=== PATIENT | female | born 1975 | race Two or more races ===

== ENCOUNTER 2024-11-25 14:42 | Emergency (ER) | payer MEDICAID, SELFPAY ==
[2024-11-25 15:41] VITALS: BP 118/85; PULSE 85; RESP 18; TEMP 36.6; O2SAT 97; BMI 30.2
--- NOTE | 2024-11-25 15:41 | EDNOTE_ITS ---
<Statement entered by Cherelle Mosquera MD - 11/25/24 16:08> As co-signing physician, I was present and available for consult prn. I concur with the plan and care as documented by the midlevel provider. Upper Extremity Injury RME/HPI General Chief Complaint: Extremity Injury, Upper Stated Complaint: LEFT WRIST INJURY Time Seen by Provider: 11/25/24 15:38 Arrival date/time: 11/25/24 14:42 RME / HPI RME / HPI narrative: 49-year-old female patient came in for evaluation regarding left wrist pain, on the radial aspect, for several weeks, worse with flexion of the time. Patient was seen by PCP and was given pain medication with no relief. Patient also complained of finger triggering on the right middle finger. It comes and goes. Denies any other complaints. Related Data Previous Rx's ?Medication ?Instructions ?Recorded amoxicillin 500 mg capsule 500 mg PO TID #21 caps 07/16 12/31 cyclobenzaprine 10 mg tablet 10 mg PO TID PRN pain #14 tabs 07/29/18 ibuprofen 800 mg tablet 800 mg PO QID PRN pain #20 t abs 07/29/18 acetaminophen 650 mg 650 mg PO Q8H PRN fever or p ain 07/16/22 tablet,extended release #30 tabs ibuprofen 600 mg tablet 600 mg PO Q8H PRN fever or p ain 07/16/22 #30 tabs ondansetron 4 mg disintegrating 8 mg (2 x 4 mg) PO Q8H PRN nausea 07/16/22 tablet and vomiting #20 tabs ibuprofen 800 mg tablet 800 mg PO Q8H PRN pain #30 t abs 11/25/24 Allergies Allergy/AdvReac Type Severity Reaction Status Date / Time hydrocodone Allergy Unknown Verified 11/25/24 14:44 Review of Systems Review of Systems Narrative Review of Systems: Review of system reviewed and within normal limits except mentioned in HPI ED Exam Narrative Physical exam: VITAL SIGNS: Reviewed. GENERAL APPEARANCE: Alert and interactive, follows commands, no acute distress, HEAD AND FACE: Non-traumatic. ENT: PERRL, pink conjunctivitis, eyelid no trauma, Mucous membrane moist. NECK: Supple, nontender, no nuchal rigidity. CHEST: No tenderness, no crepitus, no paradoxical movement, no retractions. LUNGS: Clear, well ventilated, symmetric, no rales, no wheezing, no ronchi, no stridor, good breath sounds bilaterally. HEART: Regular rate, regular rhythm, no murmur, no gallops. ABDOMEN: Soft, positive bowel sounds, nondistended, no guarding, nontender, no rebound, no masses, RECTAL: Deferred. GENITAL: Deferred. NEUROLOGICAL: Gross motor function intact sensory function intact, Appropriate for age. MUSCULOSKELETAL: low back nontender, full range of motion. EXTREMITIES: No trigger finger noted today, tenderness to the left radial side of the wrist worse with flexion of the time, no redness noted full range of motion. SKIN: Color pink, dry, no rash, no lacerations, no abrasions, no contusions. LYMPHATICS: Deferred. Course Quality Measures none Extremity Injury MDM Narrative MDM Narrative:: 49-year-old female patient came in for evaluation regarding left wrist pain, on the radial aspect, for several weeks, worse with flexion of the time. Patient was seen by PCP and was given pain medication with no relief. Patient also complained of finger triggering on the right middle finger. It comes and goes. Denies any other complaints. Thumb spica splint applied. Patient was advised to wear the splint for 24 hours a day for 3 weeks and follow-up with hand specialist. Patient is having de Quervain's tenosynovitis and a trigger finger also at the same time Imaging or workup not needed at this time. Patient data External records reviewed:: None Clinical information provided by:: patient Social determinants that could affect healthcare access:: none Patient has the following chronic illnesses:: None How is presenting disease/condition affected by chronic disease/condition?: no chronic disease Evaluation data The following diagnostics were reviewed and interpreted by me:: other (specify) Lab and/or radiology exams considered but not ordered:: None Interpretation Summary: None Medications / Prescriptions Medications or Prescriptions considered but not ordered:: None Medication administrations:: None Consultations Consultation(s) initiated? (list below): No Diagnosis Upper Extremity Injury Differential Diagnosis: other (De Quervain's tenosynovitis, trigger finger, wrist pain) Most likely diagnosis given after review of the tests above:: De Quervain's tenosynovitis, trigger finger Admission Indicated Admission indicated?: not indicated Explain why admission is indicated or not indicated:: Stable for discharge Admission Request Was there a request for admission?: No Disposition Plan Disposition Plan: Discharge Discharge Attestation Discharge Attestation: The patient was given an opportunity to ask questions and understood the discharge instructions. Discharge instructions specifically effects, indications for sooner follow up or return to the emergency department, and the expected course of current diagnosis. Patient condition: Stable Discharge Plan Plan Patient Disposition: HOME (Self Care) Disposition Comment: Stable Prescriptions/Referrals Prescriptions/Med Rec: New ibuprofen 800 mg tablet 800 mg PO Q8H PRN (Reason: pain) Qty: 30 0RF No Action cyclobenzaprine 10 mg tablet 10 mg PO TID PRN (Reason: pain) Qty: 14 0RF amoxicillin 500 mg capsule 500 mg PO TID Qty: 21 0RF ibuprofen 800 mg tablet 800 mg PO QID PRN (Reason: pain) Qty: 20 0RF acetaminophen 650 mg tablet extended release 650 mg PO Q8H PRN (Reason: fever or pain) Qty: 30 0RF Rx Instructions: swallow whole; do not chew/break/dissolve/open ibuprofen 600 mg tablet 600 mg PO Q8H PRN (Reason: fever or pain) Qty: 30 0RF ondansetron 4 mg tablet,disintegrating 8 mg PO Q8H PRN (Reason: nausea and vomiting) Qty: 20 0RF Problem List Clinical Impression: De Quervain's disease (tenosynovitis), Trigger finger Patient/Caregiver Discharge Instructions Discharge Activity: activity as tolerated Education Materials: De Quervain Tenosynovitis, What Is Trigger Finger? Additional Instructions: Thank you for the opportunity for serving you today. You are stable for discharged . You are advised to: Follow-up with your PCP in 1 to 2 days Return to ED for worsening of symptoms Increase oral fluids Take medication as prescribed Wear your splint for the next 3 weeks, wear it 22 hours a day. As your PCP to refer you to a hand specialist. Print Language: Upper Sorbian Stand Alone Forms: Lydia Award Info., Patient Portal Info Letter PA/JEWELRY DRILL OPERATOR Supervising Physician LOUISA/JEWELRY DRILL OPERATOR Supervising Physician: MD Demetri
== END 2024-11-25 16:20 | disposition home or self-care (01) ==
LOC: SERX 16:00
PROVIDERS: Emergency Provider Emergency Medicine
DX: M65.4 Radial styloid tenosynovitis [de Quervain] (principal); M65.331 Trigger finger, right middle finger
CPT/HCPCS: 29126; 99282